=== PATIENT | male | born 1930 | race Caucasian/White ===

== ENCOUNTER 2018-06-27 10:56 | Emergency (ER) | payer MEDICARE, BC ==
--- NOTE | 2018-06-27 11:40 | ED ---
Lower Extremity Injury HPI - General Chief Complaint: Extremity Injury, Lower Stated Complaint: left knee injury Time Seen by Provider: 06/27/18 11:12 Source: patient, RN notes reviewed, old records reviewed Mode of arrival: wheelchair Limitations: no limitations - History of Present Illness Initial Comments: Patient is an 87-year-old male presents emergency Department stay with chief complaint of left knee pain. Patient reports he was walking in a parking lot tripped over a curb. He reports that he had lateral stress to his knee. Patient reports that he has been able to walk on it with some pain. No previous knee injuries. Patient states these had no numbness or tingling down the leg. Denies any hip pain. Denies any head injury or other injuries related to this trip and fall.Patient denies any recent fever, chills, shortness of breath, chest pain, back pain, abdominal pain, nausea vomiting, numbness or tingling, dysuria or hematuria, constipation or diarrhea, headaches or visual changes, or any other current symptoms. - Related Data Home Medications Medication Instructions Recorded Confirmed ALPRAZolam [Xanax] 0.25 mg PO BID 03/29/16 06/27/18 Levothyroxine Sodium [Synthroid] 25 mcg PO DAILY 03/29/16 06/27/18 Loratadine [Claritin] 10 mg PO DAILY 03/29/16 06/27/18 Metoclopramide HCl [Reglan] 10 mg PO BID 03/29/16 06/27/18 PARoxetine HCL [Paxil] 10 mg PO DAILY 03/29/16 06/27/18 Pantoprazole Sodium [Protonix] 40 mg PO BID 03/29/16 06/27/18 Simvastatin [Zocor] 40 mg PO HS 03/29/16 06/27/18 Vardenafil HCl [Levitra] 2.5 mg PO DAILY PRN 03/29/16 06/27/18 Acetaminophen [Tylenol Arthritis] 650 mg PO TID PRN 06/27/18 06/27/18 Arginine Oxoglurate [l-Arginine] 350 mg PO DAILY 06/27/18 06/27/18 Biotin 5 mg PO DAILY 06/27/18 06/27/18 Blk Current 1 tab PO DAILY 06/27/18 06/27/18 Calcium Carbonate [Calcium] 600 mg PO DAILY 06/27/18 06/27/18 Cholecalciferol [Vitamin D3] 1,000 unit PO DAILY 06/27/18 06/27/18 Chromium Picolinate 200 mcg PO DAILY 06/27/18 06/27/18 Cyanocobalamin (Vitamin B-12) 1,000 mcg PO DAILY 06/27/18 06/27/18 [Vitamin B-12] Fish Oil 1400 Mg 1,400 mg PO DAILY 06/27/18 06/27/18 Glucosamine Sulfate 500 mg PO BID 06/27/18 06/27/18 Lutein 10 mg PO DAILY 06/27/18 06/27/18 Milk Thistle 150 mg PO DAILY 06/27/18 06/27/18 Multivitamins, Thera [Multivitamin 1 tab PO DAILY 06/27/18 06/27/18 (formulary)] Saw [place] 160 mg PO DAILY 06/27/18 06/27/18 Tamsulosin [Flomax] 0.4 mg PO HS 06/27/18 06/27/18 Ubidecarenone [Co Q-10] 100 mg PO DAILY 06/27/18 06/27/18 Vitamin E 1,000 unit PO DAILY 06/27/18 06/27/18 cycloSPORINE [Restasis] 1 drop BOTH EYES BID 06/27/18 06/27/18 Previous Rx's Medication Instructions Recorded Ibuprofen 600 mg PO TID #20 tablet 06/27/18 Allergies Allergy/AdvReac Type Severity Reaction Status Date / Time Penicillins Allergy Unknown Verified 06/27/18 11:34 Sulfa (Sulfonamide Allergy Unknown Verified 06/27/18 11:34 Antibiotics) venom-honey bee Allergy Unknown Verified 06/27/18 11:34 [bee venom (honey bee)] Review of Systems ROS Statement: Those systems with pertinent positive or pertinent negative responses have been documented in the HPI. ROS Other: All systems not noted in ROS Statement are negative. Past Medical History Past Medical History: GERD/Reflux, Hyperlipidemia, Thyroid Disorder History of Any Multi-Drug Resistant Organisms: None Reported Past Surgical History: Ear Surgery Additional Past Surgical History / Comment(s): VASECTOMY Past Psychological History: Anxiety, Depression Smoking Status: Former smoker Past Alcohol Use History: Daily Past Drug Use History: None Reported General Exam - General Exam Comments Initial Comments: 87-year-old male. Limitations: no limitations General appearance: alert, in no apparent distress Head exam: Present: atraumatic, normocephalic, normal inspection Eye exam: Present: normal appearance, PERRL, EOMI. Absent: scleral icterus, conjunctival injection, periorbital swelling ENT exam: Present: normal exam, mucous membranes moist Neck exam: Present: normal inspection. Absent: tenderness, meningismus, lymphadenopathy Respiratory exam: Present: normal lung sounds bilaterally. Absent: respiratory distress, wheezes, rales, rhonchi, stridor Cardiovascular Exam: Present: regular rate, normal rhythm, normal heart sounds. Absent: systolic murmur, diastolic murmur, rubs, gallop, clicks GI/Abdominal exam: Present: soft, normal bowel sounds. Absent: distended, tenderness, guarding, rebound, rigid Extremities exam: Present: normal inspection, full ROM, normal capillary refill. Absent: tenderness, pedal edema, joint swelling, calf tenderness Left Upper Leg exam: Present: normal inspection, full ROM Knee exam: Present: normal inspection, tenderness (Patient has tenderness over the lateral aspect of the knee.), pain/laxity with varus. Absent: full ROM ( Patient reports pain with full extension.) Lower Leg exam: Present: normal inspection, full ROM Ankle exam: Present: normal inspection, full ROM Back exam: Present: normal inspection Neurological exam: Present: alert, oriented X3, CN II-XII intact Psychiatric exam: Present: normal affect, normal mood Skin exam: Present: warm, dry, intact, normal color. Absent: rash Course Vital Signs 06/27/18 06/27/18 11:06 12:04 Temperature 97.8 F Pulse Rate 69 Respiratory 16 Rate Blood Pressure 129/81 O2 Sat by Pulse 98 Oximetry Medical Decision Making - Medical Decision Making A 7-year-old male presents emergency room CO2 of left knee pain after twisting it while stepping off a curb today. Patient has tenderness all Patient of the lateral aspect of the knee. He has no tenderness with Keke's and posterior drawer test. He does have some tenderness with varus stress. At this time Patient will be started on anti-inflammatory medication placed in Niraj wrap. He does see Dr. Power orthopedic. Discussed falling up with Dr. Power and return parameters were discussed. - Radiology Data Radiology results: report reviewed No fracture dislocation of the left knee. Disposition Clinical Impression: Left knee sprain Disposition: HOME SELF-CARE Condition: Good Instructions: Knee Sprain (ED) Additional Instructions: Patient is to rest, ice, and elevate the knee. Follow-up with auto adjudication specialist. The knee immobilizer and Niraj wrap as directed. Return to the emergency department if any alarming signs or symptoms occur. Prescriptions: Ibuprofen 600 mg PO TID #20 tablet Is patient prescribed a controlled substance at d/c from ED?: No Referrals: Saturnino Still MD [Primary Care Provider] - 1-2 days Chago Ivory MD [Medical Doctor] - 1-2 days Rafael Power MD [STAFF PHYSICIAN] - 1-2 days Time of Disposition: 12:24
[2018-06-27 12:05] VITALS: RESP 16
--- NOTE | 2018-06-27 12:06 | XR ---
EXAMINATION TYPE: XR knee complete LT DATE OF EXAM: 06/27/2018 CLINICAL HISTORY: pain TECHNIQUE: Three views of the left knee are obtained. COMPARISON: None. FINDINGS: There is no acute fracture/dislocation. Patellar soft tissue swelling noted. Mild degenera tive narrowing medial tibiofemoral joint space and spurring at the superior patella. IMPRESSION: There is no acute fracture or dislocation ICD 10 NO FRACTURE, INITIAL EVALUATION
[2018-06-27 12:45] VITALS: BP 138/70; PULSE 76; TEMP 98
== END 2018-06-27 12:44 | disposition home or self-care (01) ==
LOC: EC 10:56
DX: S83.92XA Sprain of unspecified site of left knee, initial encounter (principal); E78.5 Hyperlipidemia, unspecified; E07.9 Disorder of thyroid, unspecified; K21.9 Gastro-esophageal reflux disease without esophagitis; F32.9 Major depressive disorder, single episode, unspecified; F41.9 Anxiety disorder, unspecified; Z87.891 Personal history of nicotine dependence; Z88.0 Allergy status to penicillin; Z88.2 Allergy status to sulfonamides; Z91.030 Bee allergy status; Z79.899 Other long term (current) drug therapy; X50.1XXA Overexertion from prolonged static or awkward postures, initial encounter; Y93.01 Activity, walking, marching and hiking; Y92.481 Parking lot as the place of occurrence of the external cause
CPT/HCPCS: 99284

== ENCOUNTER 2019-07-11 11:52 | Emergency (ER) | payer MEDICARE, BC ==
[2019-07-11 12:12] VITALS: TEMP 97.7
[2019-07-11] MEDS ORDERED: MECLIZINE 12.5 MG TAB PO STA (12:27)
[2019-07-11 12:56] LABS: Basophils % (A) 0 %; Eosinophils # (A) 0.1 k/uL (0-0.7); Eosinophils % (A) 1 %; HCT 39.1 % (39.0-53.0); HGB 13.8 gm/dL (13.0-17.5); Lymphocytes # (A) 0.9 k/uL (1.0-4.8); Lymphocytes % (A) 13 %; MCH 33.9 pg (25.0-35.0); MCHC 35.4 g/dL (31.0-37.0); MCV 95.9 fL (80.0-100.0); Mean Platelet Volume 6.2; Monocytes # (A) 0.5 k/uL (0-1.0); Monocytes % (A) 8 %; Neutrophils # (A) 4.9 k/uL (1.3-7.7); Neutrophils % (A) 74 %; Platelet Count 232 k/uL (150-450); RBC 4.08 m/uL (4.30-5.90); RDW 11.8 % (11.5-15.5); WBC 6.6 k/uL (3.8-10.6)
[2019-07-11 13:04] LABS: Appearance,Urine Clear (Clear); Bilirubin,Urine Negative (Negative); Blood,Urine Negative (Negative); Color,Urine Light Yellow; Glucose,Urine (UA) Negative (Negative); Ketones,Urine Negative (Negative); Leukocyte Esterase,Urine Negative (Negative); Nitrite,Urine Negative (Negative); Protein,Urine Negative (Negative); Specific Gravity,Urine 1.007 (1.001-1.035); Urobilinogen,Urine <2.0 mg/dL (<2.0)
[2019-07-11 13:05] LABS: ALT 20 U/L (21-72); AST 29 U/L (17-59); African American GFR (CKD) >90 (>60 ml/min/1.73 sqM); Albumin 4.6 g/dL (3.5-5.0); Alkaline Phosphatase 54 U/L (38-126); Anion Gap 11 mmol/L; Blood Urea Nitrogen 7 mg/dL (9-20); Calcium 9.6 mg/dL (8.4-10.2); Carbon Dioxide 24 mmol/L (22-30); Chloride 95 mmol/L (98-107); Glucose 112 mg/dL (74-99); Potassium 4.1 mmol/L (3.5-5.1); Sodium 130 mmol/L (137-145); Total Bilirubin 0.5 mg/dL (0.2-1.3); Total Protein 7.4 g/dL (6.3-8.2)
--- NOTE | 2019-07-11 13:39 | CT ---
EXAMINATION TYPE: CT brain mary ellen zamudio DATE OF EXAM: 07/11/2019 COMPARISON: NONE HISTORY: DICK, dizziness. Head and neck pain. CT DLP: 1479.8 mGycm. Automated Exposure Control for Dose Reduction was Utilized. TECHNIQUE: CT scan of the head and cervical spine are performed without contrast. FINDINGS: There is no acute intracranial hemorrhage, mass effect, or midline shift identified. The ventricles and sulci are symmetrically enlarged compatible with age-related volume loss. The globes are intact. Mild degree mucosal thickening is seen in the maxillary sinuses and ethmoid sinuses exten ding into the left frontal sinus. There is grade 1 anterolisthesis of C3 on C4 and C4 and C5, likely on a degenerative basis with retrolisthesis of C6 on C7 and anterolisthesis (grade 1 as well) of C7 o n T1. Multilevel uncovertebral hypertrophy and facet arthropathy as well as intervertebral disc space narrowing and anterior osteophytes. No vertebral body height loss or malalignment. Facets remain ali gned. Prevertebral soft tissues are within normal limits. C1 and C2 articulation is unremarkable. Spi nal canal is limited on CT however no high-grade spinal canal stenosis is seen. IMPRESSION: 1. There is no acute fracture other cervical spine. 2. No acute intracranial hemorrhage, mass effect, or midline shift is seen. 3. Multilevel malalignment is likely on a degenerative basis as degenerative disc disease is at least moderate. 4. Mild paranasal sinus disease.
--- NOTE | 2019-07-11 13:43 | XR ---
EXAMINATION TYPE: XR chest 2V DATE OF EXAM: 07/11/2019 COMPARISON: NONE HISTORY: Dizziness TECHNIQUE: Frontal and lateral views of the chest are obtained. FINDINGS: There is no focal air space opacity, pleural effusion, or pneumothorax seen. Prominence of the aortic arch is seen in the ascending thoracic aorta. Otherwise cardia mediastinal silhouette is within normal limits. Moderate multilevel degenerative change of the spine. The osseous structures are intact. There is generalized osseous demineralization. IMPRESSION: Prominence of the ascending thoracic aorta and aortic arch that may relate to rotation o r aneurysm. No acute pulmonary pathology.
[2019-07-11] MEDS ORDERED: DIAZEPAM 5 MG/ML 2 ML INJ IVP STA (15:13)
[2019-07-11] MEDS ORDERED: SODIUM CHLORIDE 0.9% 1,000 ML IV ONE (15:13)
--- NOTE | 2019-07-11 15:17 | ED ---
Dizziness HPI - General Chief Complaint: Dizziness Stated Complaint: DIZZINESS Time Seen by Provider: 07/11/19 12:10 Source: patient, EMS Mode of arrival: EMS Limitations: no limitations - History of Present Illness Initial Comments: The patient is an 88-year-old male with past medical history of thyroid disorder, hyperlipidemia who presents emergency room with reported vertiginous symptoms. He states that they have been present for the past week. They have been waxing and waning in nature. He did lose his balance yesterday and fell. States that he caught himself and had no injuries. His symptoms are worse with movement and better when he is laying flat area. No history of similar episode previously. States that he awoke this morning and his symptoms were worse than normal. He feels as if the room is spinning on him. He admits to associated mild headache. No fevers or chills. Does have associated nausea with one episode of vomiting this morning. Denies a history of stroke. This was sudden onset and symptoms. No maximal intensity. Denies any visual changes. No unilateral numbness or weakness. No sensory changes. Denies any facial droop or confusion. He did not take any medications at home for her symptoms. No recent blunt head trauma. There are no alleviating, precipitating or modifying factors - Related Data Home Medications Medication Instructions Recorded Confirmed ALPRAZolam [Xanax] 0.25 mg PO HS 03/29/16 07/11/19 Levothyroxine Sodium [Synthroid] 25 mcg PO DAILY 03/29/16 07/11/19 Loratadine [Claritin] 10 mg PO DAILY 03/29/16 07/11/19 Metoclopramide HCl [Reglan] 10 mg PO HS 03/29/16 07/11/19 PARoxetine HCL [Paxil] 10 mg PO DAILY 03/29/16 07/11/19 Pantoprazole Sodium [Protonix] 40 mg PO BID 03/29/16 07/11/19 Simvastatin [Zocor] 40 mg PO HS 03/29/16 07/11/19 Vardenafil HCl [Levitra] 2.5 mg PO DAILY PRN 03/29/16 07/11/19 Acetaminophen [Tylenol Arthritis] 650 mg PO BID 06/27/18 07/11/19 Biotin 5 mg PO DAILY 06/27/18 07/11/19 Fish Oil 1400 Mg 1,400 mg PO BID 06/27/18 07/11/19 Milk Thistle 150 mg PO DAILY 06/27/18 07/11/19 Multivitamins, Thera [Multivitamin 1 tab PO DAILY 06/27/18 07/11/19 (formulary)] Saw [place] 320 mg PO DAILY 06/27/18 07/11/19 Tamsulosin [Flomax] 0.4 mg PO HS 06/27/18 07/11/19 Ubidecarenone [Co Q-10] 200 mg PO DAILY 06/27/18 07/11/19 cycloSPORINE [Restasis] 1 drop BOTH EYES BID 06/27/18 07/11/19 [place] 400mg 1 tab PO DAILY 07/11/19 07/11/19 Cyanocobalamin [Vitamin B-12] 500 mcg PO DAILY 07/11/19 07/11/19 Doxycycline Hyclate [Vibramycin] 100 mg PO BID 07/11/19 07/11/19 Ferrous Sulfate [Feosol] 325 mg PO Q48H 07/11/19 07/11/19 Glucosam/Dhaval-Msm1/C/Clark/Bosw 1 tab PO BID 07/11/19 07/11/19 [Hmqwyvenggy-Vaoluyehjwv-WLI Tb] Lutein 20 mg PO DAILY 07/11/19 07/11/19 Magnesium 400 mg PO DAILY 07/11/19 07/11/19 Previous Rx's Medication Instructions Recorded Meclizine [Antivert] 25 mg PO TID PRN #15 tab 07/11/19 Allergies Allergy/AdvReac Type Severity Reaction Status Date / Time Penicillins Allergy Unknown Verified 06/27/18 11:34 Sulfa (Sulfonamide Allergy Unknown Verified 06/27/18 11:34 Antibiotics) venom-honey bee Allergy Unknown Verified 06/27/18 11:34 [bee venom (honey bee)] Review of Systems ROS Statement: Those systems with pertinent positive or pertinent negative responses have been documented in the HPI. ROS Other: All systems not noted in ROS Statement are negative. Past Medical History Past Medical History: GERD/Reflux, Hyperlipidemia, Thyroid Disorder History of Any Multi-Drug Resistant Organisms: None Reported Past Surgical History: Ear Surgery Additional Past Surgical History / Comment(s): VASECTOMY, mastoid surgery 9 years old. Past Psychological History: Anxiety, Depression Smoking Status: Former smoker Past Alcohol Use History: Daily Past Drug Use History: None Reported General Exam Limitations: no limitations General appearance: alert, in no apparent distress Head exam: Present: atraumatic, normocephalic, normal inspection Eye exam: Present: normal appearance, PERRL, EOMI. Absent: scleral icterus, conjunctival injection, periorbital swelling ENT exam: Present: normal exam, mucous membranes moist Neck exam: Present: normal inspection. Absent: tenderness, meningismus, lymphadenopathy Respiratory exam: Present: normal lung sounds bilaterally. Absent: respiratory distress, wheezes, rales, rhonchi, stridor Cardiovascular Exam: Present: regular rate, normal rhythm, normal heart sounds. Absent: systolic murmur, diastolic murmur, rubs, gallop, clicks GI/Abdominal exam: Present: soft, normal bowel sounds. Absent: distended, tenderness, guarding, rebound, rigid Extremities exam: Present: normal inspection, full ROM, normal capillary refill. Absent: tenderness, pedal edema, joint swelling, calf tenderness Back exam: Present: normal inspection Neurological exam: Present: alert, oriented X3, CN II-XII intact, other (finger to nose is symmetric. Heel to valadez is symmetric. No nuchal rigidity. No truncal ataxia. Negative pronantor drift. No vertical or rotary nystagmus. ) Psychiatric exam: Present: normal affect, normal mood Skin exam: Present: warm, dry, intact, normal color. Absent: rash Course Vital Signs 07/11/19 07/11/19 07/11/19 12:06 13:20 15:45 Temperature 97.7 F Pulse Rate 79 80 91 Respiratory 18 16 18 Rate Blood Pressure 167/96 155/96 174/93 O2 Sat by Pulse 96 96 96 Oximetry 07/11/19 17:00 Temperature Pulse Rate 84 Respiratory 18 Rate Blood Pressure 159/94 O2 Sat by Pulse 97 Oximetry EKG Findings - EKG Comments: EKG Findings:: EKG demonstrates a sinus rhythm with first-degree AV block. Rate of 80. [place] interval 232. QRS 84. QTC 419. There are no acute ST segment patient depressions concerning for ischemic changes Medical Decision Making - Medical Decision Making Upon her the patient is placed in room 7. A thorough history and physical exam was performed. A 12-lead EKG was performed which demonstrated no acute findings. I did recommend laboratory studies and a CT of the patient's brain. Also recommended a chest x-ray. Peripheral IV was established. The patient was given 25 mg of oral meclizine. He was also given a liter bolus of normal saline. Laboratory studies were performed. CBC is unremarkable. Sodium was 130, chloride 95. Urinalysis is negative. First troponin is negative. Chest x-ray demonstrates prominence of the ascending thoracic aorta and aortic arch that may relate to rotation or aneurysm. No acute pulmonary pathology. CT of the head and cervical spine demonstrates no acute fracture. No acute injury cranial hemorrhage, mass effect or midline shift. Multilevel malalignment is likely on a general basis. Mild paranasal sinus disease. I discussed these results with the patient. I did discuss performing a chest CT because of the abnormal chest x-ray results. Patient was in agreement with this. Chest CT demonstrates some mild breathing motion artifact. No definite pulmonary embolus. Ectatic thoracic aorta. Minimal emphysematous change. I did provide the patient with 5 mg of Valium IV. I did reevaluate him. He states that he has had improvement in his dizziness. I did recommend hospital admission for neurologic evaluation and possible MRI however the patient refused. I did discuss risks of leaving include permanent disability and even . The patient understood these and was able to recite them. He was still adamant that he wanted to go home. I informed the patient that he should return if he has any new or worsening symptoms. The patient was in agreement and was discharged home ambulatory in stable condition. I did provide him with a prescription for meclizine if needed. - Lab Data Result diagrams: 07/11/19 12:03 07/11/19 12:03 Lab Results 07/11/19 07/11/19 07/11/19 Range/Units 12:03 12:03 12:03 WBC 6.6 (3.8-10.6) k/uL RBC 4.08 L (4.30-5.90) m/uL Hgb 13.8 (13.0-17.5) gm/dL Hct 39.1 (39.0-53.0) % MCV 95.9 (80.0-100.0) fL MCH 33.9 (25.0-35.0) pg MCHC 35.4 (31.0-37.0) g/dL RDW 11.8 (11.5-15.5) % Plt Count 232 (150-450) k/uL Neutrophils % 74 % Lymphocytes % 13 % Monocytes % 8 % Eosinophils % 1 % Basophils % 0 % Neutrophils # 4.9 (1.3-7.7) k/uL Lymphocytes # 0.9 L (1.0-4.8) k/uL Monocytes # 0.5 (0-1.0) k/uL Eosinophils # 0.1 (0-0.7) k/uL Basophils # 0.0 (0-0.2) k/uL Sodium 130 L (137-145) mmol/L Potassium 4.1 (3.5-5.1) mmol/L Chloride 95 L (98-107) mmol/L Carbon Dioxide 24 (22-30) mmol/L Anion Gap 11 mmol/L BUN 7 L (9-20) mg/dL Creatinine 0.75 (0.66-1.25) mg/dL Est GFR (CKD-EPI)AfAm >90 (>60 ml/min/1.73 sqM) Est GFR (CKD-EPI)NonAf 83 (>60 ml/min/1.73 sqM) Glucose 112 H (74-99) mg/dL Plasma Lactic Acid Ry (0.7-2.0) mmol/L Calcium 9.6 (8.4-10.2) mg/dL Total Bilirubin 0.5 (0.2-1.3) mg/dL AST 29 (17-59) U/L ALT 20 L (21-72) U/L Alkaline Phosphatase 54 (38-126) U/L Troponin I <0.012 (0.000-0.034) ng/mL Total Protein 7.4 (6.3-8.2) g/dL Albumin 4.6 (3.5-5.0) g/dL Urine Color Urine Appearance (Clear) Urine pH (5.0-8.0) Ur Specific [place] (1.001-1.035) Urine Protein (Negative) Urine Glucose (UA) (Negative) Urine Ketones (Negative) Urine Blood (Negative) Urine Nitrite (Negative) Urine Bilirubin (Negative) Urine Urobilinogen (<2.0) mg/dL Ur Leukocyte Esterase (Negative) 07/11/19 07/11/19 Range/Units 12:03 12:50 WBC (3.8-10.6) k/uL RBC (4.30-5.90) m/uL Hgb (13.0-17.5) gm/dL Hct (39.0-53.0) % MCV (80.0-100.0) fL MCH (25.0-35.0) pg MCHC (31.0-37.0) g/dL RDW (11.5-15.5) % Plt Count (150-450) k/uL Neutrophils % % Lymphocytes % % Monocytes % % Eosinophils % % Basophils % % Neutrophils # (1.3-7.7) k/uL Lymphocytes # (1.0-4.8) k/uL Monocytes # (0-1.0) k/uL Eosinophils # (0-0.7) k/uL Basophils # (0-0.2) k/uL Sodium (137-145) mmol/L Potassium (3.5-5.1) mmol/L Chloride (98-107) mmol/L Carbon Dioxide (22-30) mmol/L Anion Gap mmol/L BUN (9-20) mg/dL Creatinine (0.66-1.25) mg/dL Est GFR (CKD-EPI)AfAm (>60 ml/min/1.73 sqM) Est GFR (CKD-EPI)NonAf (>60 ml/min/1.73 sqM) Glucose (74-99) mg/dL Plasma Lactic Acid Ry 1.0 (0.7-2.0) mmol/L Calcium (8.4-10.2) mg/dL Total Bilirubin (0.2-1.3) mg/dL AST (17-59) U/L ALT (21-72) U/L Alkaline Phosphatase (38-126) U/L Troponin I (0.000-0.034) ng/mL Total Protein (6.3-8.2) g/dL Albumin (3.5-5.0) g/dL Urine Color Light Yellow Urine Appearance Clear (Clear) Urine pH 7.0 (5.0-8.0) Ur Specific [place] 1.007 (1.001-1.035) Urine Protein Negative (Negative) Urine Glucose (UA) Negative (Negative) Urine Ketones Negative (Negative) Urine Blood Negative (Negative) Urine Nitrite Negative (Negative) Urine Bilirubin Negative (Negative) Urine Urobilinogen <2.0 (<2.0) mg/dL Ur Leukocyte Esterase Negative (Negative) Disposition Clinical Impression: Vertigo Disposition: HOME SELF-CARE Condition: Serious Instructions (If sedation given, give patient instructions): Dizziness (ED) Additional Instructions: Please follow-up with your primary care doctor in 2-4 days for reevaluation. I did recommend hospital admission. Return to the emergency room for any new or worsening symptoms. The Antivert as needed for your dizziness Prescriptions: Meclizine [Antivert] 25 mg PO TID PRN #15 tab PRN Reason: Vertigo Is patient prescribed a controlled substance at d/c from ED?: No Referrals: Saturnino Still MD [Primary Care Provider] - 1-2 days Time of Disposition: 16:50
[2019-07-11 15:46] VITALS: RESP 18
--- NOTE | 2019-07-11 15:52 | CT ---
EXAMINATION TYPE: CT angio chest DATE OF EXAM: 07/11/2019 COMPARISON: Radiograph same day HISTORY: 88-year-old male Dizziness, Aneurysm TECHNIQUE: Contiguous axial scanning of the chest performed with IV Contrast, patient injected with 1 00 mL of Isovue 370. Coronal/sagittal MIP reconstructions performed. CT DLP: 367.7 mGycm Automated exposure control for dose reduction was used. FINDINGS: Heart normal size without pericardial effusion. Prominent epicardial fat. Coronary vessel calcificati ons are present and are remarkable for coronary disease. No flattening of the interventricular septum or reflux of contrast into hepatic veins. Ectatic aortic root at 3.9 cm. Ectatic ascending aorta at 3.8 cm. Ectatic proximal arch and 3.5 cm. C onventional arch vessel branching anatomy. 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 Mildly ectatic lower descending thoracic aorta at 2.7 cm. No thoracic lymphadenopathy by CT size criteria. Prominent left hilar lymph nodes measuring up to 8 m m. Mild bilateral gynecomastia. Satisfactory opacification of the pulmonary artery system. Mild bibasilar respiratory motion artifact s. No pulmonary embolus seen. Mild diffuse bronchial wall thickening. Mild dependent atelectasis. Biapical pleural-parenchymal scar ring. A couple scattered emphysematous cysts. No consolidation or pleural effusion. Small hiatal hernia. Otherwise, visualized upper abdomen shows no gross abnormality. Bones: Endplate spondylosis throughout the visualized spine. IMPRESSION: 1. SOME MILD BREATHING MOTION ARTIFACT. NO DEFINITE PULMONARY EMBOLUS. 2. 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 3. MINIMAL EMPHYSEMATOUS CHANGE. MILD DIFFUSE BRONCHIAL WALL THICKENING COULD REPRESENT BRONCHITIS OR ASTHMA. 4. SMALL HIATAL HERNIA.
[2019-07-11 17:17] VITALS: BP 159/94; PULSE 84
== END 2019-07-11 17:00 | disposition home or self-care (01) ==
LOC: EC 11:52
DX: R42 Dizziness and giddiness (principal); J43.9 Emphysema, unspecified; I77.810 Thoracic aortic ectasia; R11.2 Nausea with vomiting, unspecified; E07.9 Disorder of thyroid, unspecified; E78.5 Hyperlipidemia, unspecified; K21.9 Gastro-esophageal reflux disease without esophagitis; F41.9 Anxiety disorder, unspecified; F32.9 Major depressive disorder, single episode, unspecified; Z79.890 Hormone replacement therapy; Z79.899 Other long term (current) drug therapy; Z87.891 Personal history of nicotine dependence; Z88.0 Allergy status to penicillin; Z91.030 Bee allergy status; Z88.2 Allergy status to sulfonamides
CPT/HCPCS: 99285; 96360; 36415; 93005; 80053; 83605; 84484; 85025; 81003; 71046; 72125; 70450; 71275; Q9967

== ENCOUNTER → 2019-07-17 | Outpatient (CLI) | payer MEDICARE, BC ==
--- NOTE | 2019-07-17 15:20 | XR ---
EXAMINATION TYPE: XR skull complete DATE OF EXAM: 07/17/2019 COMPARISON: NONE HISTORY: Pre-MRI TECHNIQUE: 4 views submitted FINDINGS: Osseous structures intact. No metallic foreign body overlying the orbits. Degenerative sierra ge of the cervical spine with facet arthropathy noted. Foraminal encroachment suspected. IMPRESSION: No metallic foreign body identified.
== END | disposition home or self-care (01) ==
LOC: RADXRMAIN 14:47
PROVIDERS: ATTEND Physical Medicine & Rehabilitation
DX: M47.812 Spondylosis without myelopathy or radiculopathy, cervical region (principal); E78.5 Hyperlipidemia, unspecified; E03.9 Hypothyroidism, unspecified; M50.321 Other cervical disc degeneration at C4-C5 level; M79.12 Myalgia of auxiliary muscles, head and neck; K21.9 Gastro-esophageal reflux disease without esophagitis; Z98.890 Other specified postprocedural states
CPT/HCPCS: 70260

== ENCOUNTER 2019-08-06 20:14 | Emergency (ER) | payer MEDICARE, BC ==
[2019-08-06 20:27] VITALS: RESP 20
[2019-08-06 22:17] LABS: African American GFR (CKD) >90 (>60 ml/min/1.73 sqM); Albumin 4.6 g/dL (3.5-5.0); Anion Gap 12 mmol/L; Calcium 9.7 mg/dL (8.4-10.2); Carbon Dioxide 18 mmol/L (22-30); Chloride 103 mmol/L (98-107); Glucose 105 mg/dL (74-99); Non-African American GFR(CKD) 85 (>60 ml/min/1.73 sqM); Sodium 133 mmol/L (137-145); Total Bilirubin 0.5 mg/dL (0.2-1.3); Total Protein 7.6 g/dL (6.3-8.2)
[2019-08-06 22:20] LABS: ALT 24 U/L (21-72); AST 37 U/L (17-59); Alkaline Phosphatase 99 U/L (38-126); Blood Urea Nitrogen 13 mg/dL (9-20); Potassium 4.6 mmol/L (3.5-5.1)
[2019-08-06 22:21] LABS: Basophils % (A) 0 %; Eosinophils # (A) 0.2 k/uL (0-0.7); Eosinophils % (A) 2 %; HGB 13.4 gm/dL (13.0-17.5); Lymphocytes # (A) 1.4 k/uL (1.0-4.8); Lymphocytes % (A) 21 %; MCH 33.6 pg (25.0-35.0); MCHC 35.4 g/dL (31.0-37.0); Mean Platelet Volume 6.2; Monocytes # (A) 0.7 k/uL (0-1.0); Monocytes % (A) 10 %; Neutrophils # (A) 4.2 k/uL (1.3-7.7); Neutrophils % (A) 62 %; Platelet Count 235 k/uL (150-450); RDW 11.8 % (11.5-15.5); WBC 6.8 k/uL (3.8-10.6)
[2019-08-06 22:22] LABS: Appearance,Urine Turbid (Clear); Bilirubin,Urine Negative (Negative); Blood,Urine Large (Negative); Color,Urine Dark Red; Glucose,Urine (UA) Negative (Negative); Ketones,Urine Trace (Negative); Leukocyte Esterase,Urine Small (Negative); Nitrite,Urine Negative (Negative); PH, Urine 8.5 (5.0-8.0); Protein,Urine 2+ (Negative); RBC,Urine >182 /hpf (0-5); Urobilinogen,Urine <2.0 mg/dL (<2.0); WBC,Urine >182 /hpf (0-5)
[2019-08-06 22:31] LABS: Specific Gravity,Urine 1.008 (1.001-1.035)
--- NOTE | 2019-08-06 22:31 | XR ---
EXAMINATION TYPE: XR KUB DATE OF EXAM: 08/06/2019 COMPARISON: NONE HISTORY: Abdominal pain and hematuria TECHNIQUE: 2 views upright FINDINGS: There is no sign of intestinal obstruction or pneumoperitoneum. Fecal pattern is normal. Th ere is no sign of a mass. There are no definite pathologic calcifications over the kidneys. Lung base s are clear. IMPRESSION: Nonacute abdomen.
[2019-08-06 23:01] VITALS: BP 149/86; PULSE 85; TEMP 98.9
--- NOTE | 2019-08-06 23:22 | ED ---
General Adult HPI - General Chief complaint: Urogenital Stated complaint: Blood in Urine Time Seen by Provider: 08/06/19 20:55 Source: patient, RN notes reviewed, old records reviewed Mode of arrival: ambulatory Limitations: physical limitation - History of Present Illness Initial comments: 88-year-old male patient presents to ED chief complaint of one-day hematuria. Patient reports that he recently ate a large meal and has some abdominal bloating, some generalized discomfort but no focal area of pain. Denies any other complaints at this time. Denies any use of blood thinners. Systemic: Pt denies fatigue, fever/chills, rash. Pt denies weakness, night sweats, weight loss. Neuro: Pt denies headache, visual disturbances, syncope or pre-syncope. HEENT: Pt denies ocular discharge or irritation, otalgia, rhinorrhea, pharyngitis or notable lymphadenopathy. Cardiopulmonary: Pt denies chest pain, SOB, heart palpitations, dyspnea on exertion. Abdominal/GI: Pt denies abdominal pain, n/v/d. : Pt denies dysuria, burning w/ urination, frequency/urgency. Denies new onset urinary or bowel incontinence. MSK: Pt denies myalgia, loss of strength or function in extremities. Neuro: Pt denies new onset weakness, paresthesias. - Related Data Home Medications Medication Instructions Recorded Confirmed ALPRAZolam [Xanax] 0.25 mg PO HS 03/29/16 07/11/19 Levothyroxine Sodium [Synthroid] 25 mcg PO DAILY 03/29/16 07/11/19 Loratadine [Claritin] 10 mg PO DAILY 03/29/16 07/11/19 Metoclopramide HCl [Reglan] 10 mg PO HS 03/29/16 07/11/19 PARoxetine HCL [Paxil] 10 mg PO DAILY 03/29/16 07/11/19 Pantoprazole Sodium [Protonix] 40 mg PO BID 03/29/16 07/11/19 Simvastatin [Zocor] 40 mg PO HS 03/29/16 07/11/19 Vardenafil HCl [Levitra] 2.5 mg PO DAILY PRN 03/29/16 07/11/19 Acetaminophen [Tylenol Arthritis] 650 mg PO BID 06/27/18 07/11/19 Biotin 5 mg PO DAILY 06/27/18 07/11/19 Fish Oil 1400 Mg 1,400 mg PO BID 06/27/18 07/11/19 Milk Thistle 150 mg PO DAILY 06/27/18 07/11/19 Multivitamins, Thera [Multivitamin 1 tab PO DAILY 06/27/18 07/11/19 (formulary)] Saw [place] 320 mg PO DAILY 06/27/18 07/11/19 Tamsulosin [Flomax] 0.4 mg PO HS 06/27/18 07/11/19 Ubidecarenone [Co Q-10] 200 mg PO DAILY 06/27/18 07/11/19 cycloSPORINE [Restasis] 1 drop BOTH EYES BID 06/27/18 07/11/19 Black Currant 400mg 1 tab PO DAILY 07/11/19 07/11/19 Cyanocobalamin [Vitamin B-12] 500 mcg PO DAILY 07/11/19 07/11/19 Doxycycline Hyclate [Vibramycin] 100 mg PO BID 07/11/19 07/11/19 Ferrous Sulfate [Feosol] 325 mg PO Q48H 07/11/19 07/11/19 Glucosam/Dhaval-Msm1/C/Clark/Bosw 1 tab PO BID 07/11/19 07/11/19 [Efbsamynzcf-Yufjfqlwgxm-JQV Tb] Lutein 20 mg PO DAILY 07/11/19 07/11/19 Magnesium 400 mg PO DAILY 07/11/19 07/11/19 Previous Rx's Medication Instructions Recorded Meclizine [Antivert] 25 mg PO TID PRN #15 tab 07/11/19 Allergies Allergy/AdvReac Type Severity Reaction Status Date / Time Penicillins Allergy Unknown Verified 08/06/19 20:27 Sulfa (Sulfonamide Allergy Unknown Verified 08/06/19 20:27 Antibiotics) venom-honey bee Allergy Unknown Verified 08/06/19 20:27 [bee venom (honey bee)] Review of Systems ROS Statement: Those systems with pertinent positive or pertinent negative responses have been documented in the HPI. ROS Other: All systems not noted in ROS Statement are negative. Past Medical History Past Medical History: GERD/Reflux, Hyperlipidemia, Thyroid Disorder History of Any Multi-Drug Resistant Organisms: None Reported Past Surgical History: Ear Surgery Additional Past Surgical History / Comment(s): VASECTOMY, mastoid surgery 9 years old. Past Psychological History: Anxiety, Depression Smoking Status: Former smoker Past Alcohol Use History: Daily Past Drug Use History: None Reported General Exam - General Exam Comments Initial Comments: Constitutional: NAD, AOX3, Pt has pleasant affect. HEENT: NC/AT, trachea midline, neck supple, no lymphadenopathy. Posterior pharynx non erythematous, without exudates. External ears appear normal, without discharge. Mucous membranes moist. Eyes PERRLA, EOM intact. There is no scleral icterus. No pallor noted. Cardiopulmonary: RRR, no murmurs, rubs or gallops, no JVD noted. Lungs CTAB in anterior and posterior bernabe. No peripheral edema. Abdominal exam: Abdomen soft and non-distended. Abdomen non-tender to palpation in all 4 quadrants. Bowel sounds active in LLQ. No hepatosplenomegaly. No ecchymosis Neuro: CN II-XII grossly intact. No nuchal rigidity. No raccon eyes, no murillo sign, no hemotympanum. No cervical spinal tenderness. MSK: No posterior calf tenderness bilaterally, homans sign negative bilaterally. Posterior tibialis and radial pulse +2 bilaterally. Sensation intact in upper and lower extremities. Full active ROM in upper and lower extremities, 5/5 stregnth. Limitations: physical limitation Course Vital Signs 08/06/19 08/06/19 20:24 23:00 Temperature 98.6 F 98.9 F Pulse Rate 102 H 85 Respiratory 20 Rate Blood Pressure 154/89 149/86 O2 Sat by Pulse 99 96 Oximetry Medical Decision Making - Medical Decision Making 88-year-old male patient presents to ED chief complaint of one-day hematuria. Patient vital signs are stable, afebrile. Physical exam did not display acute pathology. Laboratory investigations revealed gross hematuria, stable hemo globin. KUB displayed no acute abdomen. Abdomen is nontender. Patient will be discharged to follow-up tomorrow with urology. Return to ER physician worsens. Case discussed with Dr. Frost. - Lab Data Result diagrams: 08/06/19 22:00 08/06/19 22:00 Lab Results 08/06/19 08/06/19 08/06/19 Range/Units 22:00 22:00 22:00 WBC 6.8 (3.8-10.6) k/uL RBC 4.00 L (4.30-5.90) m/uL Hgb 13.4 (13.0-17.5) gm/dL Hct 38.0 L (39.0-53.0) % MCV 95.0 (80.0-100.0) fL MCH 33.6 (25.0-35.0) pg MCHC 35.4 (31.0-37.0) g/dL RDW 11.8 (11.5-15.5) % Plt Count 235 (150-450) k/uL Neutrophils % 62 % Lymphocytes % 21 % Monocytes % 10 % Eosinophils % 2 % Basophils % 0 % Neutrophils # 4.2 (1.3-7.7) k/uL Lymphocytes # 1.4 (1.0-4.8) k/uL Monocytes # 0.7 (0-1.0) k/uL Eosinophils # 0.2 (0-0.7) k/uL Basophils # 0.0 (0-0.2) k/uL Sodium 133 L (137-145) mmol/L Potassium 4.6 (3.5-5.1) mmol/L Chloride 103 (98-107) mmol/L Carbon Dioxide 18 L (22-30) mmol/L Anion Gap 12 mmol/L BUN 13 (9-20) mg/dL Creatinine 0.70 (0.66-1.25) mg/dL Est GFR (CKD-EPI)AfAm >90 (>60 ml/min/1.73 sqM) Est GFR (CKD-EPI)NonAf 85 (>60 ml/min/1.73 sqM) Glucose 105 H (74-99) mg/dL Calcium 9.7 (8.4-10.2) mg/dL Total Bilirubin 0.5 (0.2-1.3) mg/dL AST 37 (17-59) U/L ALT 24 (21-72) U/L Alkaline Phosphatase 99 (38-126) U/L Total Protein 7.6 (6.3-8.2) g/dL Albumin 4.6 (3.5-5.0) g/dL Urine Color Dark Red Urine Appearance Turbid (Clear) Urine pH 8.5 H (5.0-8.0) Ur Specific Turner 1.008 (1.001-1.035) Urine Protein 2+ H (Negative) Urine Glucose (UA) Negative (Negative) Urine Ketones Trace H (Negative) Urine Blood Large H (Negative) Urine Nitrite Negative (Negative) Urine Bilirubin Negative (Negative) Urine Urobilinogen <2.0 (<2.0) mg/dL Ur Leukocyte Esterase Small H (Negative) Urine RBC >182 H (0-5) /hpf Urine WBC >182 H (0-5) /hpf Disposition Clinical Impression: Hematuria Disposition: HOME SELF-CARE Condition: Stable Instructions (If sedation given, give patient instructions): Hematuria (ED) Additional Instructions: Follow-up with primary care provider and urologist tomorrow. Return to ER if condition worsens in any way. Is patient prescribed a controlled substance at d/c from ED?: No Referrals: Saturnino Still MD [Primary Care Provider] - 1-2 days Alexander Delong MD [STAFF PHYSICIAN] - 1-2 days
== END 2019-08-06 23:25 | disposition home or self-care (01) ==
LOC: EC 20:14
DX: R31.0 Gross hematuria (principal); F41.9 Anxiety disorder, unspecified; F32.9 Major depressive disorder, single episode, unspecified; E07.9 Disorder of thyroid, unspecified; E78.5 Hyperlipidemia, unspecified; K21.9 Gastro-esophageal reflux disease without esophagitis; Z87.891 Personal history of nicotine dependence; Z79.890 Hormone replacement therapy; Z79.899 Other long term (current) drug therapy; Z88.0 Allergy status to penicillin; Z88.2 Allergy status to sulfonamides; Z91.030 Bee allergy status
CPT/HCPCS: 36415; 51798; 74018; 80053; 81001; 85025; 99284

== ENCOUNTER → 2019-09-01 | Outpatient (CLI) | payer MEDICARE, BC ==
[2019-09-01 16:31] LABS: Basophils % (A) 1 %; Eosinophils # (A) 0.2 k/uL (0-0.7); Eosinophils % (A) 3 %; HGB 13.9 gm/dL (13.0-17.5); Lymphocytes # (A) 1.2 k/uL (1.0-4.8); Lymphocytes % (A) 24 %; MCH 31.4 pg (25.0-35.0); MCV 95.1 fL (80.0-100.0); Mean Platelet Volume 7.5; Monocytes # (A) 0.5 k/uL (0-1.0); Monocytes % (A) 9 %; Neutrophils # (A) 3.1 k/uL (1.3-7.7); Neutrophils % (A) 59 %; Platelet Count 235 k/uL (150-450); RBC 4.42 m/uL (4.30-5.90); RDW 11.7 % (11.5-15.5); WBC 5.1 k/uL (3.8-10.6)
[2019-09-01 20:30] LABS: Erythrocyte Sedimentation Rate 7 mm/hr (0-15)
--- NOTE | 2019-09-01 23:41 | CT ---
EXAMINATION TYPE: CT abdomen pelvis wo/w con DATE OF EXAM: 09/01/2019 COMPARISON: Abdominal x-ray August 06, 2019 HISTORY: HEMATURIA CT DLP: 1541 mGycm, Automated Exposure Control for Dose Reduction was Utilized. CONTRAST: CT scan of the abdomen and pelvis is performed with oral and without and with IV Contrast, patient in jected with 100 mL of Isovue 300. FINDINGS: LUNG BASES: Calcification at level of mitral and aortic valve. Coronary artery calcifications present which is noted marker for underlying coronary artery disease. LIVER/GB: No significant abnormality is appreciated. PANCREAS: No significant abnormality is seen. SPLEEN: No significant abnormality is seen. ADRENALS: No significant abnormality is seen. KIDNEYS: Noncontrast images show no renal calculi bilaterally. Postcontrast images show symmetric cor tical medullary uptake and excretion without concerning solid or cystic renal mass or hydronephrosis seen bilaterally. Urinary bladder shows no suspicious intraluminal mass or calculus. No suspicious ec centric wall thickening is seen. BOWEL: Oral contrast reaches level of cecum. No suspicious small or large bowel dilatation. Small mod erate size hiatal hernia. PROSTATE/SEMINAL VESICLES: Prostate gland upper limits of normal in size. LYMPH NODES: No greater than 1cm abdominal or pelvic lymph nodes are appreciated. OSSEOUS STRUCTURES: Fairly moderate multilevel spurring in the spine. Multilevel vacuum disc phenomen on and disc space narrowing most prominent left L4-L5 level with slight S-shaped scoliotic curvature. Multilevel facet arthropathy. Moderate narrowing both hip joints. OTHER: Mild to moderate calcified plaque of the aorta extends into branch vessels. IMPRESSION: Source of hematuria not identified.
== END ==
LOC: RADCTMAIN 15:41
PROVIDERS: ATTEND Family Medicine
DX: R31.9 Hematuria, unspecified (principal)
CPT/HCPCS: 85652; 82565; 84520; 85025; 86140; 74178; Q9967